=== PATIENT | female | born 1960 | race Caucasian/White ===

== ENCOUNTER 2017-10-02 05:06 | Emergency (ER) | payer BC, OTHER ==
[2017-10-02] MEDS ORDERED: predniSONE 20 MG Tab PO ONE (05:31)
[2017-10-02] MEDS ORDERED: EPINEPHrine 1 MG/ML SDV IM ONE (05:32)
[2017-10-02] MEDS ORDERED: LORazepam 0.5 MG Tab PO ONE (05:33)
--- NOTE | 2017-10-02 05:41 | EDM.PDOC ---
ED HPI GENERAL MEDICAL PROBLEM - General Chief Complaint: Skin Complaint Stated Complaint: HIVES Time Seen by Provider: 10/02/17 05:23 Source of Information: Reports: Patient, RN Notes Reviewed - History of Present Illness INITIAL COMMENTS - FREE TEXT/NARRATIVE: 57-year-old lady comes in with quite severe rash of both arms that started about 7:00 last evening, about 10 hours ago. She states she has had this about 5 times before over the past 7 months with the last episode about 1 month ago. She does have some rash of the right lower abdomen and also states the bottom of her feet are itchy. Skin is otherwise fairly clear at this time. No facial swelling. No throat swelling or difficulty breathing. 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 She does state that she is on doxycycline for an infection under her armpits. That was started about 6 days ago. She is already taken Benadryl twice during the night and also has taken hydroxyzine with no relief. 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: Psychiatric History: Reports: Anxiety, Depression Dermatologic History: Reports: Urticaria - Past Surgical History GI Surgical History: Reports: Colonoscopy Social & Family History - Tobacco Use Smoking Status *Q: Never Smoker Second Hand Smoke Exposure: No - Caffeine Use Caffeine Use: Reports: None - Recreational Drug Use Recreational Drug Use: No ED ROS GENERAL - Review of Systems Review Of Systems: See Below Constitutional: Denies: Fever, Chills HEENT: Denies: Throat Pain Respiratory: Denies: Shortness of Breath Cardiovascular: Denies: Chest Pain GI/Abdominal: Denies: Abdominal Pain, Nausea, Vomiting Skin: Reports: Rash (Severe itchy rash bilateral arms and forearms.) Neurological: Reports: No Symptoms ED EXAM, SKIN/RASH Exam: See Below General Appearance: Alert, Anxious, Moderate Distress Eye Exam: Bilateral Eye: PERRL Throat/Mouth: Normal Inspection Head: No: Facial Swelling Neck: Supple Respiratory/Chest: No Respiratory Distress Cardiovascular: Tachycardia Extremities: Normal Inspection Neurological: Alert, No Motor/Sensory Deficits Skin: Normal Color, Rash (Quite intense you to karyotype rash involving both arms and forearms dorsal aspect primarily also a small area of localized rash right lower abdomen) Course - Vital Signs Last Recorded V/S: Last Vital Signs Temp 97.1 F 10/02/17 05:12 Pulse 137 H 10/02/17 05:12 Resp 18 10/02/17 05:12 BP 194/107 H 10/02/17 05:46 Pulse Ox 97 10/02/17 05:12 - Orders/Labs/Meds Meds: Medications Discontinued Medications Generic Name Dose Route Start Last Admin Trade Name Darrell PRN Reason Stop Dose Admin Clonidine HCl 0.2 mg 10/02/17 05:42 10/02/17 05:46 Catapres PO 10/02/17 05:43 0.2 mg ONETIME ONE Administration Epinephrine HCl 0.2 mg 10/02/17 05:32 10/02/17 05:40 Adrenalin IM 10/02/17 05:33 0.2 mg ONETIME ONE Administration Lorazepam 0.5 mg 10/02/17 05:33 10/02/17 05:39 Ativan PO 10/02/17 05:34 0.5 mg ONETIME ONE Administration Prednisone 60 mg 10/02/17 05:31 10/02/17 05:39 Prednisone PO 10/02/17 05:32 60 mg ONETIME ONE Administration Departure - Departure Time of Disposition: 06:18 Disposition: Home, Self-Care 01 Condition: Fair Clinical Impression: Acute urticaria - Discharge Information Referrals: Myriam Tolliver MD [Primary Care Provider] - Forms: ED Department Discharge Additional Instructions: Prednisone 40 mg twice daily for 3 days and then 40 mg every morning for the next 2 days. Continue other medications as previously advised. Try see Dr. Bryant in 1-2 days for follow-up, call clinic this morning for appointment.
[2017-10-02] MEDS ORDERED: cloNIDine 0.1 MG Tab PO ONE (05:42)
== END 2017-10-02 06:27 | disposition home or self-care (01) ==
LOC: JD.ED 05:06
DX: L50.9 Urticaria, unspecified (principal); I10 Essential (primary) hypertension; Z88.2 Allergy status to sulfonamides
CPT/HCPCS: 96372; 99283; A9270; J0171

== ENCOUNTER 2017-10-16 22:09 | Emergency (ER) | payer OTHER ==
[2017-10-16] MEDS ORDERED: Sodium Chloride 0.9% 10 ML Syringe FLUSH PRN (22:31)
[2017-10-16] MEDS ORDERED: methylPREDNISolone Sodium Succinate 125 MG/2 ML SDV IVPUSH ONE (22:31)
[2017-10-16] MEDS ORDERED: Famotidine 20 MG/2 ML SDV IVPUSH ONE (22:32)
--- NOTE | 2017-10-17 00:06 | EDM.PDOC ---
ED HPI GENERAL MEDICAL PROBLEM - General Chief Complaint: Allergic Reaction Stated Complaint: HIVES Time Seen by Provider: 10/16/17 22:25 Source of Information: Reports: Patient History Limitations: Reports: No Limitations - History of Present Illness INITIAL COMMENTS - FREE TEXT/NARRATIVE: The patient presents with hives. She has chronic hives. This has been an ongoing problem since January. She has had many flair ups. She is finding some citrus and acidic foods can cause it. She did have some salsa tonight. She has no shortness of breath but she has some itching around her mouth. She can still swallow. She has been on steroids 7 times since January. 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 Lisa 180 mg Hydroxyzine 50 mg - Related Data Allergies Allergy/AdvReac Type Severity Reaction Status Date / Time Sulfa (Sulfonamide Allergy Rash Verified 10/16/17 22:13 Antibiotics) Home Meds: Home Meds Doxepin [SINEquan] 10 mg PO BEDTIME 10/02/17 [History] Doxycycline [Doxycycline Monohydrate] 100 mg PO BID 10/02/17 [History] Fexofenadine [Lisa] 180 mg PO DAILY 10/02/17 [History] Triamcinolone Acetonide [Triamcinolone Acetonide 0.1% Oint] 1 applic TOP BID [History] hydrOXYzine HCl [Atarax] 25 mg PO QID PRN 10/02/17 [History] diphenhydrAMINE [Benadryl] 25 mg PO QID PRN 10/16/17 [History] Prednisone [IJD: predniSONE] 40 mg PO WITHBREAKFAST #10 tab 10/17/17 [Rx] Past Medical History 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: Reports: Hypertension 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: Psychiatric History: Reports: Anxiety, Depression Dermatologic History: Reports: Urticaria - Past Surgical History GI Surgical History: Reports: Colonoscopy Social & Family History - Tobacco Use Smoking Status *Q: Never Smoker Second Hand Smoke Exposure: No - Caffeine Use Caffeine Use: Reports: None - Recreational Drug Use Recreational Drug Use: No ED ROS ALLERGIC REACTION - Review of Systems Review Of Systems: See Below Constitutional: Reports: No Symptoms HEENT: Reports: No Symptoms Respiratory: Reports: No Symptoms Cardiovascular: Reports: No Symptoms Endocrine: Reports: No Symptoms GI/Abdominal: Reports: No Symptoms : Reports: No Symptoms Musculoskeletal: Reports: No Symptoms Skin: Reports: Urticaria ED EXAM GENERAL NO PERIP PULSE - Physical Exam Exam: See Below Exam Limited By: No Limitations General Appearance: Alert, No Apparent Distress Ears: Normal External Exam Nose: Normal Inspection Throat/Mouth: Normal Inspection Head: Atraumatic, Normocephalic Neck: Normal Inspection Respiratory/Chest: No Respiratory Distress, Lungs Clear, Normal Breath Sounds Cardiovascular: Regular Rate, Rhythm, No Edema, No Murmur GI/Abdominal: Soft, Non-Tender, No Organomegaly, No Mass Back Exam: Normal Inspection Neurological: Alert, Oriented, No Motor/Sensory Deficits Skin Exam: Other (Urticaria to both arms and legs.) Course - Vital Signs Last Recorded V/S: Last Vital Signs Temp 97.7 F 10/16/17 22:13 Pulse 99 10/16/17 22:13 Resp 18 10/16/17 22:13 BP 131/73 10/16/17 22:13 Pulse Ox 99 10/16/17 22:13 - Orders/Labs/Meds Orders: Active Orders 24 hr Category Date Time Status Peripheral IV Care [RC] . DIRECTED Care 10/16/17 22:31 Active Sodium Chloride 0.9% [Saline Flush] Med 10/16/17 22:31 Active 10 ml FLUSH ASDIRECTED PRN Peripheral IV Insertion Adult [OM.PC] Routine Oth 10/16/17 22:31 Ordered Medication Orders Sodium Chloride (Saline Flush) 10 ml FLUSH ASDIRECTED PRN PRN Reason: Keep Vein Open Last Admin: 10/16/17 22:56 Dose: 10 ml Meds: Medications Generic Name Dose Route Start Last Admin Trade Name Freq PRN Reason Stop Dose Admin Sodium Chloride 10 ml 10/16/17 22:31 10/16/17 22:56 Saline Flush FLUSH 10 ml ASDIRECTED PRN Administration Keep Vein Open Discontinued Medications Generic Name Dose Route Start Last Admin Trade Name Freq PRN Reason Stop Dose Admin Famotidine 20 mg 10/16/17 22:32 10/16/17 22:55 Pepcid IVPUSH 10/16/17 22:33 20 mg ONETIME ONE Administration Methylprednisolone Sodium Succinate 125 mg 10/16/17 22:31 10/16/17 22:55 Solu-Medrol IVPUSH 10/16/17 22:32 125 mg ONETIME ONE Administration - Re-Assessments/Exams Free Text/Narrative Re-Assessment/Exam: 10/17/17 00:05 I ordered an IV saline lock, solu-medrol 125mg IV and pepcid 20mg IV. 10/17/17 00:05 She feels better. I will discharge her home. Departure - Departure Time of Disposition: 00:05 Disposition: Home, Self-Care 01 Condition: Good Clinical Impression: Urticaria - Discharge Information Prescriptions: Prednisone [IJD: predniSONE] 40 mg PO WITHBREAKFAST #10 tab Referrals: Myriam Tolliver MD [Primary Care Provider] - 1 Week Additional Instructions: Take the prednisone 40mg daily for 5 days. Take the rest of your medication as prescribed. Please return if you are worse. - My Orders Last 24 Hours: My Active Orders 10/16/17 22:31 Peripheral IV Care [RC] . DIRECTED Sodium Chloride 0.9% [Saline Flush] 10 ml FLUSH ASDIRECTED PRN Peripheral IV Insertion Adult [OM.PC] Routine - Assessment/Plan Last 24 Hours: My Active Orders 10/16/17 22:31 Peripheral IV Care [RC] . DIRECTED Sodium Chloride 0.9% [Saline Flush] 10 ml FLUSH ASDIRECTED PRN Peripheral IV Insertion Adult [OM.PC] Routine
== END 2017-10-17 00:15 | disposition home or self-care (01) ==
LOC: JD.ED 22:09
DX: L50.9 Urticaria, unspecified (principal); I10 Essential (primary) hypertension; F32.9 Major depressive disorder, single episode, unspecified; F41.9 Anxiety disorder, unspecified; Z88.2 Allergy status to sulfonamides; Z79.899 Other long term (current) drug therapy
CPT/HCPCS: 96374; 96375; 99283; J2930; J7050; 99284